=== PATIENT | male | born 1960 | race African-American/Black ===

== ENCOUNTER 2022-10-06 00:55 | Emergency (ER) | payer BC, SELFPAY ==
[2022-10-06] MEDS ORDERED: Ketorolac Tromethamine 30 MG/ML VIAL ONE ×2 (01:44)
== END 2022-10-06 01:55 | disposition home or self-care (01) ==
LOC: CSHERS 00:55
DX: M62.838 Other muscle spasm (principal); F17.210 Nicotine dependence, cigarettes, uncomplicated
CPT/HCPCS: 96374; J1885

== ENCOUNTER 2022-10-06 19:46 | Emergency (ER) | payer SELFPAY ==
[~2022-10-06 19:46] MED LIST: Iopamidol 300 61% 100 ML VIAL FS ONE
[2022-10-06] MEDS ORDERED: Morphine 4 MG/ML VIAL ONE (20:32)
[2022-10-06] MEDS ORDERED: Ketorolac Tromethamine 30 MG/ML VIAL ONE (20:32)
[2022-10-06 21:05] LABS: ALT (SGPT) 10 U/L (8-55); AST (SGOT) 18 U/L (5-34); Albumin 4.3 g/dL (3.5-5.0); Alkaline Phosphatase 74 U/L (40-110); Anion Gap 12 mmol/L (10-20); BUN (Urea Nitrogen) 16 mg/dL (8.4-25.7); Bilirubin, Total 0.3 mg/dL (0.2-1.2); Calc. Creatinine Clearance 0 mL/min (70-130); Carbon Dioxide 24 mmol/L (22-29); Chloride 106 mmol/L (98-107); Estimated GFR 98; Globulin 3.5 g/dL (2.4-3.5); Glucose 131 mg/dL (70-105); Potassium 3.7 mmol/L (3.5-5.1); Protein, Total 7.8 g/dL (6.0-8.3); Sodium 138 mmol/L (136-145)
[2022-10-06 21:08] LABS: #Eosinphils 0.1 10x3/uL (0.0-0.5); #Monocytes 1.1 10x3/uL (0.0-1.1); #Neutrophils 7.2 10x3/uL (1.5-8.4); %Basophils 0.2 % (0.0-2.0); %Eosinophils 1.1 % (0.0-6.0); %Lymphocytes 18.6 % (18.0-47.0); %Monocytes 10.2 % (0.0-10.0); %Neutrophils 69.7 % (40.0-75.0); Hemoglobin 13.7 g/dL (13.5-17.5); Mean Corpuscular HGB CONC 35.1 g/dL (32.0-36.0); Mean Corpuscular Hemoglobin 32.8 pg (27.0-33.0); Mean Corpuscular Volume 93.3 fl (81.2-95.1); Mean Platelet Volume 9.5 fl (7.4-10.4); Platelet Count 276 10x3/uL (150-450); RBC Distribution Width 12.5 % (11.5-14.5); Red Blood Cell (RBC) Count 4.18 10x6/uL (4.32-5.72); White Blood Cell (WBC) Count 10.4 10x3/uL (3.5-10.5)
== END 2022-10-06 22:06 | disposition home or self-care (01) ==
LOC: CSHERS 19:46
DX: M54.2 Cervicalgia (principal); R03.0 Elevated blood-pressure reading, without diagnosis of hypertension; F17.210 Nicotine dependence, cigarettes, uncomplicated
CPT/HCPCS: 70491; 80053; 85025; 93005; 96374; 96375; J1885; J2270; Q9967